=== PATIENT | male | born 1935 | race Caucasian/White ===

== ENCOUNTER 2020-05-29 12:10 | Observation (INO) ==
[2020-05-29] MEDS ORDERED: Isovue-370 500 ML BOTTLE IVP ONE (14:52)
[2020-05-29] MEDS ORDERED: Naloxone 0.4 MG/ML INJ IVP PRN (14:52)
[2020-05-29] MEDS ORDERED: Mag Hydrox/Al Hydrox/Simeth 30 ML UDC PO PRN (14:52)
[2020-05-29] MEDS ORDERED: MOM Conc 10 ML UD.LIQ PO PRN (14:52)
[2020-05-29] MEDS ORDERED: Perflutren Lipid Microsphere 1.3 ML in 0.9 % Sodium Chloride 8.7 ML IVP PRN (14:56)
[2020-05-29] MEDS ORDERED: Ipratropium/Albuterol Neb 3 ML IH PRN (15:28)
[2020-05-29] MEDS ORDERED: Ondansetron ODT 4 MG TAB.RAPDIS SL PRN (16:00)
[2020-05-29 18:31] LABS: % Iron Saturation 4 % (20-55); Iron 22 mcg/dL (65-175); Transferrin 353 mg/dL (203-362)
[2020-05-29] MEDS ORDERED: Melatonin 3 MG TABLET PO PRN (21:00)
[2020-05-29 22:47] LABS: Bilirubin,Urine Negative (Negative); Blood,Urine Negative (Negative); Clarity,Urine Clear (Clear); Color,Urine Light-Yellow (Yellow); Glucose,Urine (UA) Normal (Normal); Ketones,Urine Negative (Negative); Leukocyte Esterase,Urine Negative (Negative); Nitrite,Urine Negative (Negative); PH,Urine 7.5 pH Units (5.0-8.0); Protein,Urine Negative (Neg-Trace); Urobilinogen,Urine Normal (Normal)
[2020-05-30 04:44] LABS: Hematocrit 26.7 % (37.5-50.1); Red Cell Distribution Width 19.9 % (11.5-14.5)
[2020-05-30 04:45] LABS: Mean Corpuscular Hemoglobin 24.5 pg (28.0-33.3); Mean Corpuscular Volume 81.9 fL (83.0-100.0); Red Blood Count 3.26 M/mcL (4.19-5.50); White Blood Count 6.2 K/mcL (4.3-11.1)
[2020-05-30 04:49] LABS: Platelet Count 86 K/mcL (140-400)
[2020-05-30 05:01] LABS: Alanine Aminotransferase 8 Units/L (7-52); Albumin 3.3 g/dL (3.5-5.7); Albumin/Globulin Ratio 1.6 (1.1-2.2); Alkaline Phosphatase 72 Units/L (34-104); Aspartate Amino Transferase 11 Units/L (13-39); BUN/Creatinine Ratio 15 (6-26); Bilirubin,Total 0.8 mg/dL (0.3-1.0); Blood Urea Nitrogen 13 mg/dL (8-23); Calcium 8.4 mg/dL (8.6-10.3); Carbon Dioxide 25 mEq/L (23-29); Chloride 104 mEq/L (98-107); Chol/HDL Ratio 5.1 (0-4.9); Cholesterol 144 mg/dL (< 200); Globulin 2.1 g/dL (2.4-3.5); Glucose 105 mg/dL (70-105); HDL Cholesterol 28 mg/dL (40-59); LDL Cholesterol,Calculated 100 mg/dL (< 100); Osmolality,Calculated 280 (280-300); Potassium 3.8 mEq/L (3.5-5.1); Sodium 135 mEq/L (136-145); Total Protein 5.4 g/dL (6.4-8.9); Triglycerides 78 mg/dL (< 150); eGFR For African Americans > 60 (> 60); eGFR For Non-African Americans > 60 (> 60)
[2020-05-30] MEDS: *HR* Enoxaparin 40 MG/0.4 ML SYRINGE SQ SCH ×2 (05:32→13:21)
[2020-05-30] MEDS ORDERED: Aspirin Enteric Coated 81 MG Tablet PO SCH (09:00)
[2020-05-30 09:04] LABS: Estimated Average Glucose 143 mg/dl; Hemoglobin A1C 6.6 %
[2020-05-30] MEDS ORDERED: Iron Sucrose Complex 400 MG in 0.9 % Sodium Chloride 250 ML IVPB ONE (10:14)
[2020-05-30 11:41] LABS: Eosinophils # 0.2 K/mcL (0.0-0.6)
[2020-05-30] MEDS: polyethylene glycoL 3350 17 GM POWD.PACK PO SCH (12:12)
[2020-05-30 12:37] LABS: Basophils # 0.1 K/mcL (0.0-0.2); Lymphocytes # 2.2 K/mcL (0.6-4.6); Monocytes # 1.6 K/mcL (0.0-1.3); Neutrophils # 2.2 K/mcL (1.6-8.9); Platelet Estimate Decreased (Normal)
[2020-05-30 12:38] LABS: Anisocytosis 1+ (Not Present)
[2020-05-30] MEDS ORDERED: 0.9 % Sodium Chloride 250 ML ONE (15:05)
[2020-05-31 04:35] LABS: Hematocrit 34.4 % (37.5-50.1); Hemoglobin 10.9 g/dL (12.9-16.9); Immature Platelets 20.8 % (1.1-6.1); Mean Corpuscular HGB Conc 31.7 g/dL (31.6-35.5); Mean Corpuscular Hemoglobin 25.5 pg (28.0-33.3); Mean Corpuscular Volume 80.4 fL (83.0-100.0); Red Blood Count 4.28 M/mcL (4.19-5.50); Red Cell Distribution Width 20.3 % (11.5-14.5); White Blood Count 7.1 K/mcL (4.3-11.1)
[2020-05-31 04:37] LABS: Platelet Count 92 K/mcL (140-400)
[2020-05-31 04:53] LABS: Alanine Aminotransferase 10 Units/L (7-52); Albumin 3.8 g/dL (3.5-5.7); Albumin/Globulin Ratio 1.4 (1.1-2.2); Alkaline Phosphatase 87 Units/L (34-104); Aspartate Amino Transferase 17 Units/L (13-39); BUN/Creatinine Ratio 14 (6-26); Bilirubin,Total 1.3 mg/dL (0.3-1.0); Blood Urea Nitrogen 14 mg/dL (8-23); Carbon Dioxide 25 mEq/L (23-29); Chloride 105 mEq/L (98-107); Globulin 2.7 g/dL (2.4-3.5); Glucose 158 mg/dL (70-105); Osmolality,Calculated 292 (280-300); Potassium 3.7 mEq/L (3.5-5.1); Sodium 139 mEq/L (136-145); Total Protein 6.5 g/dL (6.4-8.9); eGFR For African Americans > 60 (> 60); eGFR For Non-African Americans > 60 (> 60)
[2020-05-31] MEDS: polyethylene glycoL 3350 17 GM POWD.PACK PO SCH (11:36)
[2020-05-31] MEDS ORDERED: *HR* LORazepam 2 MG/ML VIAL IVP PRN ×3 (11:38)
[2020-06-01 06:34] LABS: Hematocrit 32.8 % (37.5-50.1)
[2020-06-01 06:36] LABS: Hemoglobin 10.1 g/dL (12.9-16.9); Immature Platelets 22.1 % (1.1-6.1); Mean Corpuscular HGB Conc 30.8 g/dL (31.6-35.5); Mean Corpuscular Hemoglobin 25.5 pg (28.0-33.3); Mean Corpuscular Volume 82.8 fL (83.0-100.0); Red Blood Count 3.96 M/mcL (4.19-5.50); Red Cell Distribution Width 20.6 % (11.5-14.5); White Blood Count 6.9 K/mcL (4.3-11.1)
[2020-06-01 06:42] LABS: Platelet Count 89 K/mcL (140-400)
[2020-06-01 06:57] LABS: Alanine Aminotransferase 8 Units/L (7-52); Albumin 3.6 g/dL (3.5-5.7); Albumin/Globulin Ratio 1.6 (1.1-2.2); Alkaline Phosphatase 79 Units/L (34-104); Aspartate Amino Transferase 13 Units/L (13-39); BUN/Creatinine Ratio 10 (6-26); Bilirubin,Total 1.4 mg/dL (0.3-1.0); Blood Urea Nitrogen 9 mg/dL (8-23); Carbon Dioxide 25 mEq/L (23-29); Chloride 107 mEq/L (98-107); Globulin 2.3 g/dL (2.4-3.5); Glucose 93 mg/dL (70-105); Osmolality,Calculated 286 (280-300); Potassium 3.4 mEq/L (3.5-5.1); Sodium 139 mEq/L (136-145); Total Protein 5.9 g/dL (6.4-8.9); eGFR For African Americans > 60 (> 60); eGFR For Non-African Americans > 60 (> 60)
[2020-06-01] MEDS: Folic Acid 1 MG TABLET PO SCH (10:58)
[2020-06-01] MEDS: Vitamin B Complex/Vit C/Vit E 1 EACH TABLET PO SCH (10:58)
[2020-06-01] MEDS: Thiamine (B-1) 100 MG TABLET PO SCH (10:59)
[2020-06-01] MEDS: polyethylene glycoL 3350 17 GM POWD.PACK PO SCH (11:02)
[2020-06-01] MEDS ORDERED: Nicotine 14 MG PATCH.TD24 TD PRN (11:40)
[2020-06-01] MEDS ORDERED: *HR* Propofol 500 MG/50 ML BOTTLE IVP ONE (13:17)
[2020-06-01] MEDS ORDERED: Lidocaine -MPF 2% 5 ML VIAL SQ ONE (13:17)
[2020-06-02 07:14] LABS: Hematocrit 33.9 % (37.5-50.1); Hemoglobin 10.3 g/dL (12.9-16.9); Mean Corpuscular HGB Conc 30.4 g/dL (31.6-35.5); Mean Corpuscular Hemoglobin 25.4 pg (28.0-33.3); Mean Corpuscular Volume 83.5 fL (83.0-100.0); Red Blood Count 4.06 M/mcL (4.19-5.50); Red Cell Distribution Width 21.2 % (11.5-14.5); White Blood Count 6.8 K/mcL (4.3-11.1)
[2020-06-02 07:15] LABS: Platelet Count 83 K/mcL (140-400)
[2020-06-02 07:58] LABS: Alanine Aminotransferase 8 Units/L (7-52); Albumin 3.5 g/dL (3.5-5.7); Albumin/Globulin Ratio 1.5 (1.1-2.2); Alkaline Phosphatase 77 Units/L (34-104); Aspartate Amino Transferase 13 Units/L (13-39); BUN/Creatinine Ratio 10 (6-26); Bilirubin,Total 1.5 mg/dL (0.3-1.0); Blood Urea Nitrogen 10 mg/dL (8-23); Calcium 8.8 mg/dL (8.6-10.3); Carbon Dioxide 25 mEq/L (23-29); Chloride 108 mEq/L (98-107); Globulin 2.3 g/dL (2.4-3.5); Glucose 108 mg/dL (70-105); Osmolality,Calculated 288 (280-300); Potassium 3.5 mEq/L (3.5-5.1); Sodium 139 mEq/L (136-145); Total Protein 5.8 g/dL (6.4-8.9); eGFR For African Americans > 60 (> 60); eGFR For Non-African Americans > 60 (> 60)
[2020-06-02] MEDS: Vitamin B Complex/Vit C/Vit E 1 EACH TABLET PO SCH (08:36)
[2020-06-02] MEDS: polyethylene glycoL 3350 17 GM POWD.PACK PO SCH (08:36)
[2020-06-02] MEDS: Thiamine (B-1) 100 MG TABLET PO SCH (08:36)
[2020-06-02] MEDS: Folic Acid 1 MG TABLET PO SCH (08:36)
[2020-06-03 02:43] LABS: Mean Corpuscular HGB Conc 30.4 g/dL (31.6-35.5)
[2020-06-03 02:45] LABS: Hematocrit 32.6 % (37.5-50.1); Hemoglobin 9.9 g/dL (12.9-16.9); Mean Corpuscular Hemoglobin 25.2 pg (28.0-33.3); Red Blood Count 3.93 M/mcL (4.19-5.50); Red Cell Distribution Width 21.1 % (11.5-14.5); White Blood Count 6.4 K/mcL (4.3-11.1)
[2020-06-03 03:01] LABS: Alanine Aminotransferase 9 Units/L (7-52); Albumin 3.5 g/dL (3.5-5.7); Albumin/Globulin Ratio 1.6 (1.1-2.2); Alkaline Phosphatase 77 Units/L (34-104); Aspartate Amino Transferase 14 Units/L (13-39); BUN/Creatinine Ratio 12 (6-26); Blood Urea Nitrogen 11 mg/dL (8-23); Calcium 8.4 mg/dL (8.6-10.3); Carbon Dioxide 23 mEq/L (23-29); Chloride 107 mEq/L (98-107); Globulin 2.2 g/dL (2.4-3.5); Glucose 116 mg/dL (70-105); Osmolality,Calculated 284 (280-300); Potassium 3.8 mEq/L (3.5-5.1); Sodium 137 mEq/L (136-145); Total Protein 5.7 g/dL (6.4-8.9); eGFR For African Americans > 60 (> 60); eGFR For Non-African Americans > 60 (> 60)
[2020-06-03 03:12] LABS: Platelet Count 78 K/mcL (140-400)
[2020-06-03] MEDS: Folic Acid 1 MG TABLET PO SCH (09:31)
[2020-06-03] MEDS: Thiamine (B-1) 100 MG TABLET PO SCH (09:32)
[2020-06-03] MEDS: Vitamin B Complex/Vit C/Vit E 1 EACH TABLET PO SCH (09:32)
[2020-06-03] MEDS: polyethylene glycoL 3350 17 GM POWD.PACK PO SCH (09:32)
[2020-06-04 06:52] LABS: Hemoglobin 10.4 g/dL (12.9-16.9); Immature Platelets 19.7 % (1.1-6.1); Mean Corpuscular HGB Conc 30.6 g/dL (31.6-35.5); Mean Corpuscular Hemoglobin 25.6 pg (28.0-33.3); Mean Corpuscular Volume 83.7 fL (83.0-100.0); Red Blood Count 4.06 M/mcL (4.19-5.50); Red Cell Distribution Width 21.6 % (11.5-14.5); White Blood Count 5.5 K/mcL (4.3-11.1)
[2020-06-04 06:55] LABS: Platelet Count 68 K/mcL (140-400)
[2020-06-04 07:12] LABS: Alanine Aminotransferase 11 Units/L (7-52); Albumin 3.5 g/dL (3.5-5.7); Albumin/Globulin Ratio 1.5 (1.1-2.2); Alkaline Phosphatase 77 Units/L (34-104); Aspartate Amino Transferase 14 Units/L (13-39); BUN/Creatinine Ratio 18 (6-26); Bilirubin,Total 1.2 mg/dL (0.3-1.0); Blood Urea Nitrogen 17 mg/dL (8-23); Calcium 8.7 mg/dL (8.6-10.3); Carbon Dioxide 23 mEq/L (23-29); Chloride 107 mEq/L (98-107); Globulin 2.3 g/dL (2.4-3.5); Glucose 117 mg/dL (70-105); Osmolality,Calculated 287 (280-300); Potassium 3.7 mEq/L (3.5-5.1); Sodium 137 mEq/L (136-145); Total Protein 5.8 g/dL (6.4-8.9); eGFR For African Americans > 60 (> 60); eGFR For Non-African Americans > 60 (> 60)
[2020-06-04] MEDS: polyethylene glycoL 3350 17 GM POWD.PACK PO SCH (09:59)
[2020-06-04] MEDS: Thiamine (B-1) 100 MG TABLET PO SCH (09:59)
[2020-06-04] MEDS: Folic Acid 1 MG TABLET PO SCH (09:59)
[2020-06-04] MEDS: Vitamin B Complex/Vit C/Vit E 1 EACH TABLET PO SCH (09:59)
[2020-06-05] MEDS: Vitamin B Complex/Vit C/Vit E 1 EACH TABLET PO SCH (08:29)
[2020-06-05] MEDS: Folic Acid 1 MG TABLET PO SCH (08:29)
[2020-06-05] MEDS: polyethylene glycoL 3350 17 GM POWD.PACK PO SCH (08:29)
[2020-06-05] MEDS: Thiamine (B-1) 100 MG TABLET PO SCH (08:29)
[2020-06-06 05:04] LABS: BUN/Creatinine Ratio 21 (6-26); Blood Urea Nitrogen 21 mg/dL (8-23); Calcium 8.8 mg/dL (8.6-10.3); Carbon Dioxide 24 mEq/L (23-29); Chloride 104 mEq/L (98-107); Glucose 120 mg/dL (70-105); Osmolality,Calculated 286 (280-300); Potassium 4.1 mEq/L (3.5-5.1); Sodium 136 mEq/L (136-145); eGFR For African Americans > 60 (> 60); eGFR For Non-African Americans > 60 (> 60)
[2020-06-06 05:09] LABS: Hematocrit 33.2 % (37.5-50.1); Hemoglobin 10.1 g/dL (12.9-16.9); Immature Platelets 18.6 % (1.1-6.1); Mean Corpuscular HGB Conc 30.4 g/dL (31.6-35.5); Mean Corpuscular Hemoglobin 25.7 pg (28.0-33.3); Mean Corpuscular Volume 84.5 fL (83.0-100.0); Red Blood Count 3.93 M/mcL (4.19-5.50); Red Cell Distribution Width 21.5 % (11.5-14.5); White Blood Count 6.2 K/mcL (4.3-11.1)
[2020-06-06 05:11] LABS: Platelet Count 76 K/mcL (140-400)
[2020-06-06] MEDS: Vitamin B Complex/Vit C/Vit E 1 EACH TABLET PO SCH (08:39)
[2020-06-06] MEDS: polyethylene glycoL 3350 17 GM POWD.PACK PO SCH (08:39)
[2020-06-06] MEDS: Folic Acid 1 MG TABLET PO SCH (08:39)
[2020-06-06] MEDS: Thiamine (B-1) 100 MG TABLET PO SCH (08:39)
[2020-06-07 05:18] LABS: Hemoglobin 10.3 g/dL (12.9-16.9)
[2020-06-07 05:20] LABS: Hematocrit 33.5 % (37.5-50.1); Immature Platelets 22.5 % (1.1-6.1); Mean Corpuscular HGB Conc 30.7 g/dL (31.6-35.5); Mean Corpuscular Hemoglobin 25.9 pg (28.0-33.3); Mean Corpuscular Volume 84.4 fL (83.0-100.0); Red Blood Count 3.97 M/mcL (4.19-5.50); White Blood Count 5.4 K/mcL (4.3-11.1)
[2020-06-07 05:22] LABS: Platelet Count 79 K/mcL (140-400)
[2020-06-07] MEDS: Thiamine (B-1) 100 MG TABLET PO SCH (10:36)
[2020-06-07] MEDS: Vitamin B Complex/Vit C/Vit E 1 EACH TABLET PO SCH (10:36)
[2020-06-07] MEDS: Folic Acid 1 MG TABLET PO SCH (10:36)
[2020-06-07] MEDS: polyethylene glycoL 3350 17 GM POWD.PACK PO SCH (10:36)
[2020-06-07 11:30] VITALS: BP 129/68
== END 2020-06-07 15:55 | disposition home health service (06) ==
LOC: 3ANU → SUATTDRO 13:16 → 3ANU 05-31 00:12
PROVIDERS: ADMIT Internal Medicine; ATTEND Internal Medicine
PROC: ENDOEBX (2020-06-01 13:45)